=== PATIENT | female | born 1960 | race Caucasian/White ===

== ENCOUNTER 2023-02-17 12:49 | Emergency (ER) | payer SELFPAY ==
[~2023-02-17] VITALS: Ht 177.8 cm; Wt 79.3 kg
[2023-02-17 13:15] VITALS: BP 163/89
[2023-02-17 13:30] VITALS: BP 143/69
[2023-02-17 13:31] LABS: BASO% 0.6 % (0-3); EOS% 1.2 % (0-8); HEMATOCRIT 41.3 % (37.0-47.0); HEMOGLOBIN 13.5 g/dl (12.0-16.0); IMMATURE GRANULOCYTES 0.3 % (0.0-5.0); LYMPH% 25.8 % (15-41); MEAN CELL VOLUME 88.4 fL CALC (80.0-100.0); MEAN CORPUSCULAR HGB 28.9 pG CALC (26.0-32.0); MEAN CORPUSCULAR HGB CONC 32.7 g/dL CAL (32.0-36.0); NEUT# 4.44 thou/uL (2.00-7.15); NEUT% 66.1 % (42-76); RED BLOOD COUNT 4.67 mill/uL (4.20-5.60); RED CELL DISTRI WIDTH 12.3 % (11.5-15.5)
[2023-02-17 13:38] LABS: ALBUMIN 4.6 g/dL (3.2-5.0); ALKALINE PHOSPHATASE 147 u/l (38-126); ANION GAP 13 (6-22 (CALC)); BILIRUBIN, TOTAL 0.4 mg/dL (0.02-1.3); BUN 16 mg/dL (8-23); BUN/CREATININE RATIO 26 (12-20 (CALC)); CARBON DIOXIDE 20 mmol/l (22-30); CHLORIDE 110 mmol/l (95-108); CREATININE 0.6 mg/dL (0.5-1.0); GFR FOR AFR.AMER. > 60 ML/MIN (>=60 (CALC)); GFR OTHER RACES > 60 ML/MIN (>=60 (CALC)); POTASSIUM 3.8 mmol/l (3.5-5.1); SGOT/AST 37 u/l (9-36); SODIUM 139 mmol/l (137-146); TOTAL PROTEIN 7.3 g/dL (6.3-8.2)
[2023-02-17 13:46] VITALS: BP 159/71
[2023-02-17 14:00] VITALS: BP 151/74
[2023-02-17 14:15] VITALS: BP 145/66
[2023-02-17] MEDS ORDERED: FLEXERIL5 M1 PO (14:32)
[2023-02-17] MEDS ORDERED: NAPROXEN500 MG PO (14:32)
[2023-02-17] MEDS ORDERED: DECADRON4 MG PO (14:33)
[2023-02-17 15:14] VITALS: BP 145/66
== END 2023-02-17 15:17 | disposition home or self-care (01) | DRG 552 ==
LOC: ED 12:49
PROVIDERS: Family Medicine
DX: M54.31 Sciatica, right side (principal)